=== PATIENT | male | born 1970 | race Caucasian/White ===

== ENCOUNTER 2017-04-08 14:34 | Emergency (ER) | payer SELFPAY ==
[~2017-04-08] VITALS: Ht 165.1 cm; Wt 79.5 kg
[2017-04-08 14:39] VITALS: BP 116/69; TEMP 98
[2017-04-08] MEDS ORDERED: [UNRECOGNIZED DRUG - REMARK] (15:07)
[2017-04-08] MEDS ORDERED: [UNRECOGNIZED DRUG - REMARK] (15:08)
[2017-04-08 15:43] LABS: HEMATOCRIT 47.8 % (42.0-52.0); HEMOGLOBIN 16.3 g/dl (13.5-18.0); MEAN CELL VOLUME 85 fl (80.0-100.0); MEAN CORPUSCULAR HEMOGLOBIN 29 pg (27.0-31.0); MEAN CORPUSCULAR HGB CONC 34 g/dl (33.0-37.0); MEAN PLATELET VOLUME 10.5 fl (7.4-10.4); PLATELET COUNT 251 K/mm3 (130-400); RED BLOOD COUNT 5.62 M/mm3 (4.20-5.60); WHITE BLOOD COUNT 15.6 K/mm3 (4.8-10.8)
[2017-04-08 15:47] LABS: ADD PATHOLOGY DIFF REVIEW NO
[2017-04-08 15:58] LABS: ADJUSTED CALCIUM 9.7 mg/dL (8.4-10.2); ALBUMIN 5.1 gm/dL (3.5-5.0); BILIRUBIN,TOTAL 1.4 mg/dL (0.0-1.0); CALCIUM 10.6 mg/dL (8.4-10.2); CREATININE, serum 2.04 mg/dL (0.66-1.25); POTASSIUM 3.5 mmol/L (3.4-5.0)
[2017-04-08 16:01] LABS: PH 5 (5-8); SQUAMOUS EPITHELIAL 0-2 /hpf; URINE APPEARANCE Hazy; URINE BACTERIA Rare /hpf; URINE BILIRUBIN Negative (NEGATIVE); URINE BLOOD Negative (NEGATIVE); URINE COLOR Amber; URINE GLUCOSE 2+ (NEGATIVE); URINE KETONE Negative (NEGATIVE); URINE RBC 0-2 /hpf; URINE UROBILINOGEN Negative (NEGATIVE); URINE WBC 0-2 /hpf
[2017-04-08 16:30] LABS: BAND 2 % (0-10); NEUTROPHILS 82 % (42.0-75.2); PLATELET ESTIMATE NORMAL (NORMAL); TOTAL CELLS COUNTED 100
[2017-04-08 16:42] VITALS: PULSE 88
== END 2017-04-08 17:29 | disposition home or self-care (01) ==
LOC: COL.ER 14:34
PROVIDERS: Nurse Practitioner
DX: E86.0 Dehydration (principal); X30.XXXA Exposure to excessive natural heat, initial encounter; F17.200 Nicotine dependence, unspecified, uncomplicated
CPT/HCPCS: J2405; J7030